=== PATIENT | female | born 1985 | race Caucasian/White ===

== ENCOUNTER 2023-08-21 14:53 | Emergency (ER) | payer MEDICAID ==
[~2023-08-21] VITALS: Ht 175.3 cm; Wt 70.0 kg
[2023-08-21 15:22] VITALS: O2SAT 97
[2023-08-21 16:27] LABS: *AMPHETAMINES SCREEN URINE NEGATIVE (NEGATIVE); *BARBITURATES SCREEN URINE NEGATIVE (NEGATIVE); *BENZODIAZEPINES SCREEN URINE PRESUMPTIVE POSITIVE (NEGATIVE); *COCAINE SCREEN URINE NEGATIVE (NEGATIVE); CANNABINOID URINE SCREEN NEGATIVE (NEGATIVE); ECSTASY MDMA SCREEN URINE NEGATIVE (NEGATIVE); METHADONE URINE SCREEN Neg (NEGATIVE); OPIATES URINE SCREEN NEGATIVE (NEGATIVE); PHENCYCLIDINE URINE SCREEN NEGATIVE (NEGATIVE)
[2023-08-21 16:52] LABS: HCG SCREEN NEGATIVE
[2023-08-21 16:57] LABS: ACETAMINOPHEN < 2 ug/mL (10-30); ALANINE AMINOTRANSFERASE 45 IU/L (10-49); ALBUMIN 3.7 g/dL (3.2-4.8); ASPARTATE AMINOTRANSFERASE 22 IU/L (<34); BILIRUBIN TOTAL 0.5 mg/dL (0.1-1.0); CALCIUM 8.5 mg/dL (8.7-10.4); CARBON DIOXIDE 23 mEq/L (21-32); CHLORIDE 111 mEq/L (98-107); CREATININE 0.5 mg/dL (0.6-1.0); GLUCOSE 86 mg/dL (70-105); PROTEIN TOTAL 5.5 g/dL (6.0-8.3); SODIUM 141 mEq/L (136-145)
[2023-08-21 16:58] LABS: BASOPHILS % 0.6 % (0.0-2.0); EOSINOPHILS % 2.5 % (0.0-5.0); HEMATOCRIT. 41.7 % (36.0-48.0); LYMPHOCYTES % 34.2 % (20.0-50.0); MEAN CORPUSCULAR HGB CONC 33.6 g/dL (31.0-37.0); MEAN CORPUSCULAR VOLUME 95.2 fL (81.0-99.0); MEAN PLATELET VOLUME 9.5 fl (7.4-10.4); MONOCYTES % 6.7 % (2.0-8.0); PLATELET 239 x1000/uL (130-400); RED BLOOD CELL COUNT 4.38 mill/uL (4.2-5.4); RED CELL DISTRIBUTION WIDTH 14.1 % (11.6-14.6); UREA NITROGEN BLOOD < 5 mg/dL (9-23); WHITE BLOOD COUNT 5.5 x1000/uL (4.5-11.0)
[2023-08-21] MEDS ORDERED: LORAZEPAM 1MG TABLET PO ONE (23:45)
[2023-08-22 00:50] LABS: GLUCOSE URINE NEGATIVE (NEGATIVE); KETONES URINE 4+ (NEGATIVE)
[2023-08-22 01:13] LABS: CLARITY URINE CLEAR (CLEAR); COLOR URINE YELLOW (YELLOW); PROTEIN URINE NEGATIVE (NEGATIVE); SPECIFIC GRAVITY URINE 1.022 (1.005-1.030)
[2023-08-22 01:14] LABS: LEUKOCYTE ESTERASE URINE NEGATIVE (NEGATIVE); NITRITE URINE NEGATIVE (NEGATIVE); OCCULT BLOOD URINE NEGATIVE (NEGATIVE); UROBILINOGEN URINE 1 E.U./dL (0.2-1.0)
[2023-08-22 01:15] LABS: BACTERIA URINE NONE SEEN; RBC URINE NONE SEEN /hpf (0-2); SQUAMOUS EPITHELIAL CELL URINE NONE SEEN /lpf (RARE/1+); WBC URINE NONE SEEN /hpf (0-2)
[2023-08-22] MEDS ORDERED: ACETAMINOPHEN 325MG TABLET PO ONE (10:45)
[2023-08-22] MEDS: FLUOXETINE HCL 10 MG CAPSULE PO SCH (15:17)
[2023-08-22] MEDS ORDERED: LORAZEPAM 0.5MG TABLET PO ONE (20:30)
[2023-08-23] MEDS ORDERED: LORAZEPAM 1MG TABLET PO ONE ×2 (02:45→21:30)
[2023-08-23] MEDS: FLUOXETINE HCL 10 MG CAPSULE PO SCH (09:00)
[2023-08-23] MEDS ORDERED: LORAZEPAM 0.5MG TABLET PO NR (21:45)
[2023-08-24] MEDS ORDERED: FLUOXETINE HCL 20MG CAPSULE PO SCH (09:00)
[2023-08-24 10:12] LABS: CHLAMYDIA TRACHOMATIS NAA Negative (Negative); NEISSERIA GONORRHOEAE NAA Negative (Negative)
[2023-08-24 14:05] VITALS: BP 99/60; PULSE 62; RESP 16; TEMP 98
== END 2023-08-24 14:08 | disposition home or self-care (01) ==
LOC: ER 15:03
DX: R45.851 Suicidal ideations (principal); F32.A Depression, unspecified
CPT/HCPCS: 36415; 80053; 80305; 80307; 80329; 84703; 85025; 99285